=== PATIENT | female | born 1970 | race Caucasian/White ===

== ENCOUNTER 2018-06-02 21:47 | Inpatient (IN) | payer SELFPAY ==
[~2018-06-02] VITALS: Ht 165.1 cm; Wt 80.9 kg
[2018-06-02] MEDS ORDERED: ACETAMINOPHEN 500 MG TAB (TYLENOL) PO ONE (22:30)
[2018-06-02] MEDS ORDERED: cefTRIAXone FOR IV USE 1,000 MG in WATER (STERILE) FOR INJECTION 10 ML IV ONE (22:30)
[2018-06-02] MEDS ORDERED: fentaNYL INJECTION 100 MCG/2 ML AMP IVP ONE (22:30)
--- NOTE | 2018-06-02 22:44 | ED Fever ---
History of Present Illness General Stated Complaint: CHEST DISCOMFORT History of Present Illness Date Seen by Provider: Jun 02, 2018 Time Seen by Provider: 21:50 Initial Comments 48 yo f biba fall in shower she felt weak febrile to 102. pt is a poor historian overall she says her bg is usually 500 she has diabetes but she has no money so she doesnt see doctor or take meds. she does smoke cigarettes, she does use meth but not iv she says. she has been coughing a lot has body aches, urinating with some intermittent incontinence. also she landed on her right arm felt a pop in the shoulder severe sharp nonradiating pain also hit her head and her left abdomen when she fell she tells me. pt has llq abdo pain as well she has had h/a for two years ever since she bumped it on something but she didnt go to the doctor. Allergies and Home Medications Allergies Coded Allergies: No Known Drug Allergies (Unverified , 06/02/18) Home Medications Cefdinir 300 Mg Capsule, 300 MG PO twice a day Prescribed by: RUBA VILCHIS on 06/04/18 1100 Ibuprofen 200 Mg Tablet, 400 MG PO Q8H PRN for PAIN-MILD, (Reported) Insulin Aspart 300 Units/3 Ml Solution, 5 UNITS SQ AC Prescribed by: THUY WILD on 06/04/18 1134 Insulin Detemir 100 Unit/1 Ml Insuln.pen, 20 UNIT SQ HS Prescribed by: RUBA VILCHIS on 06/04/18 1058 Patient Home Medication List Home Medication List Reviewed: Yes Review of Systems Review of Systems Constitutional: chills, fever, malaise, weakness EENTM: nose congestion, throat pain Respiratory: cough, short of breath Cardiovascular: see HPI, chest pain Genitourinary: frequency, incontinence Musculoskeletal: see HPI Psychiatric/Neurological: Anxiety All Other Systems Reviewed Negative Unless Noted: Yes Past Onuyqgd-Jarsoz-Hudpep Hx Past Med/Social Hx: Reviewed Nursing Past Med/Soc Hx Patient Social History Recent Foreign Travel: No Contact w/Someone Who Travel: No Physical Exam Vital Signs - First Documented 06/02/18 22:02 Temp 102.3 Pulse 90 Resp 18 B/P (MAP) 136/ Pulse Ox 97 O2 Delivery Room Air Capillary Refill : Height: '" Weight: lbs. oz. kg; BMI Method: General Appearance: moderate distress Eyes: Bilateral Eye PERRL HEENT: PERRL/EOMI, normal ENT inspection Neck: non-tender, full range of motion, supple Respiratory: other (decreased breath sounds left lung base.) Cardiovascular: no edema, no murmur, tachycardia Gastrointestinal: other (ttp llq no rebound or guarding) Extremities: other (there is ttp noted right shoulder and humerus, old appearing deformity at ac joint (surgical incision there), no echymosis or acute crepitus felt. rom reduced due to pain) Neurologic/Psychiatric: other (pt is anxious crying tearful, intermittently cooperatie, moving all extremities, alert and resopnsive generally.) Skin: normal color, warm/dry, other (small actively draining furuncle on abdominal wall 2-3 cm) Focused Exam Lactate Level 06/02/18 22:38: Lactic Acid Level 1.03 Lactic Acid Level Laboratory Tests Test 06/02/18 22:38 Lactic Acid Level 1.03 MMOL/L (0.50-2.00) Progress/Results/Core Measures Suspected Sepsis SIRS Temperature: Pulse: Respiratory Rate: Laboratory Tests 06/02/18 22:25: White Blood Count 14.0H Blood Pressure / Mean: 06/02/18 22:38: Lactic Acid Level 1.03 Laboratory Tests 06/02/18 22:25: Creatinine 0.52L, INR Comment 1.0, Platelet Count 316, Total Bilirubin 0.3 Results/Orders Lab Results Laboratory Tests Test 06/02/18 22:25 06/02/18 22:38 06/03/18 02:03 06/03/18 02:12 Range/Units White Blood Count 14.0 H 4.3-11.0 10^3/uL Red Blood Count 5.08 4.35-5.85 10^6/uL Hemoglobin 15.2 11.5-16.0 G/DL Hematocrit 43 35-52 % Mean Corpuscular Volume 85 80-99 FL Mean Corpuscular Hemoglobin 30 25-34 PG Mean Corpuscular Hemoglobin Concent 35 32-36 G/DL Red Cell Distribution Width 12.9 10.0-14.5 % Platelet Count 316 130-400 10^3/uL Mean Platelet Volume 10.2 7.4-10.4 FL Neutrophils (%) (Auto) 77 H 42-75 % Lymphocytes (%) (Auto) 15 12-44 % Monocytes (%) (Auto) 7 0-12 % Eosinophils (%) (Auto) 0 0-10 % Basophils (%) (Auto) 0 0-10 % Neutrophils # (Auto) 10.8 H 1.8-7.8 X 10^3 Lymphocytes # (Auto) 2.2 1.0-4.0 X 10^3 Monocytes # (Auto) 0.9 0.0-1.0 X 10^3 Eosinophils # (Auto) 0.0 0.0-0.3 10^3/uL Basophils # (Auto) 0.0 0.0-0.1 10^3/uL Neutrophils % (Manual) 68 % Lymphocytes % (Manual) 12 % Monocytes % (Manual) 10 % Eosinophils % (Manual) 0 % Basophils % (Manual) 0 % Band Neutrophils 10 % Blood Morphology Comment NORMAL Prothrombin Time 13.2 12.2-14.7 SEC INR Comment 1.0 0.8-1.4 Activated Partial Thromboplast Time 29 24-35 SEC Sodium Level 129 L 135-145 MMOL/L Potassium Level 4.1 3.6-5.0 MMOL/L Chloride Level 92 L 98-107 MMOL/L Carbon Dioxide Level 20 L 21-32 MMOL/L Anion Gap 17 H 5-14 MMOL/L Blood Urea Nitrogen 8 7-18 MG/DL Creatinine 0.52 L 0.60-1.30 MG/DL Estimat Glomerular Filtration Rate > 60 BUN/Creatinine Ratio 15 Glucose Level 348 H 70-105 MG/DL Calcium Level 8.6 8.5-10.1 MG/DL Corrected Calcium 9.4 8.5-10.1 MG/DL Total Bilirubin 0.3 0.1-1.0 MG/DL Aspartate Amino Transf (AST/SGOT) 19 5-34 U/L Alanine Aminotransferase (ALT/SGPT) 19 0-55 U/L Alkaline Phosphatase 89 40-136 U/L Total Protein 7.4 6.4-8.2 GM/DL Albumin 3.0 L 3.2-4.5 GM/DL Lactic Acid Level 1.03 0.50-2.00 MMOL/L Urine Color YELLOW Urine Clarity CLEAR Urine pH 6.5 5-9 Urine Specific [place] <1.005 1.016-1.022 Urine Protein NEGATIVE NEGATIVE Urine Glucose (UA) 2+ H NEGATIVE Urine Ketones NEGATIVE NEGATIVE Urine Nitrite NEGATIVE NEGATIVE Urine Bilirubin NEGATIVE NEGATIVE Urine Urobilinogen 0.2 NORMAL MG/DL Urine Leukocyte Esterase 1+ H NEGATIVE Urine RBC (Auto) TRACE H NEGATIVE Urine RBC RARE /HPF Urine WBC 0-2 /HPF Urine Squamous Epithelial Cells 5-10 /HPF Urine Crystals NONE /LPF Urine Bacteria TRACE /HPF Urine Casts NONE /LPF Urine Mucus NEGATIVE /LPF Urine Yeast FEW H /HPF Urine Culture Indicated CULTURE PENDING Urine Test NEGATIVE NEGATIVE Glucometer 245 H 70-110 MG/DL Micro Results Microbiology 06/02/18 Blood Culture - Preliminary, Resulted Positive; See Report 06/02/18 Influenza Types A,B Antigen (MAHAMED) - Final, Complete 06/03/18 Urine Culture - Final, Complete See Report My Orders Orders - BASSAM FELDER MD Cbc With Automated Diff (06/02/18 22:21) Comprehensive Metabolic Panel (06/02/18 22:21) Blood Culture (06/02/18 22:21) Urinalysis (06/02/18 22:21) Urine Culture (06/02/18 22:21) Protime With Inr (06/02/18 22:21) Partial Thromboplastin Time (06/02/18 22:21) Chest 1 View Ap/Pa Only (06/02/18 22:21) Saline Lock/Iv-Start (06/02/18 22:21) Saline Lock/Iv-Start (06/02/18 22:21) Ekg Tracing (06/02/18 22:21) Vital Signs Adult Sepsis Patie Q15M (06/02/18 22:21) O2 (06/02/18 22:21) Remove Rings In Anticipation O (06/02/18 22:21) Lactic Acid Analyzer (06/02/18 22:21) Influenza A And B Antigens (06/02/18 22:21) Ns Iv 1000 Ml (Sodium Chloride 0.9%) (06/02/18 22:30) Acetaminophen Tablet (Tylenol Tablet) (06/02/18 22:30) Ceftriaxone For Iv Use (Rocephin For I (06/02/18 22:30) Fentanyl Injection (Sublimaze Injection (06/02/18 22:30) Humerus 2 View Right (06/02/18 22:21) Shoulder 2 View Right (06/02/18 22:21) Manual Differential (06/02/18 22:25) Hcg,Qualitative Urine (06/02/18 23:39) Ct Head Wo (06/02/18 23:39) Ct Abdomen/Pelvis Wo (06/02/18 23:39) Insulin (Regular) Human (Humulin R (Per (06/03/18 00:00) Doxycycline Hyclate Tablet (Vibramycin T (06/03/18 00:56) Accucheck Stat ONCE (06/03/18 01:44) Ondansetron Injection (Zofran Injectio (06/03/18 02:00) Ns Iv 1000 Ml (Sodium Chloride 0.9%) (06/03/18 02:38) Medications Given in ED Vital Signs/I&O 06/02/18 06/02/18 06/03/18 06/03/18 22:02 22:53 00:00 02:00 Temp 102.3 102.3 99.8 99.5 Pulse 90 87 92 Resp 18 18 20 B/P (MAP) 136/ 106/54 110/50 (70) Pulse Ox 97 96 92 O2 Delivery Room Air Room Air Room Air Capillary Refill : Progress Note : Progress Note cxr my read lll pna flu neg leukocytosis noted lactic normal my read extremity xrays negative. in summary 48 yo hx of meth use, uncontrolled diabetes p/w fever generalized weakness, cough fell in shower, trauma workup in the er ct head neg xray no fracture or dislocation seen ct a/p " cluster of small nodular opacities at the left lung base. possibly mild infiltrate." called justina 230 am for admission for pneumonia fever weakness trouble ambulating, no follow up. ECG Initial ECG Impression Date: Jun 02, 2018 Initial ECG Impression Time: 21:56 Comment sinus tach rate 114 no ischemic changes noted. nonsp changed in avl noted Departure Impression Primary Impression: Pneumonia Disposition: XFER SHT-TRM HOSP Condition: Stable Admissions Decision to Admit Reason: Admit from ER (General) Departure-Patient Inst. Referrals: NO,LOCAL PHYSICIAN (PCP) Primary Care Physician Scripts Insulin Aspart (Novolog Flexpen) 300 Units/3 Ml Solution 5 UNITS SQ AC, #5 EA Prov: RUBA VILCHIS MD 06/04/18 Cefdinir (Cefdinir) 300 Mg Capsule 300 MG PO twice a day, #14 CAP Prov: ODGERS,RUBA K MD 06/04/18 Insulin Detemir (Levemir Flextouch) 100 Unit/1 Ml Insuln.pen 20 UNIT SQ HS, #6 EA Prov: RUBA VILCHIS MD 06/04/18 BASSAM FELDER MD Jun 02, 2018 22:44
[2018-06-02 22:52] LABS: BASOPHILS % (AUTO) 0 % (0-10); EOSINOPHILS % (AUTO) 0 % (0-10); HEMATOCRIT 43 % (35-52); HEMOGLOBIN 15.2 G/DL (11.5-16.0); LYMPHOCYTES # (AUTO) 2.2 X 10^3 (1.0-4.0); LYMPHOCYTES % (AUTO) 15 % (12-44); MEAN CORPUSCULAR HEMOGLOBIN 30 PG (25-34); MEAN CORPUSCULAR HGB CONC 35 G/DL (32-36); MEAN CORPUSCULAR VOLUME 85 FL (80-99); MEAN PLATELET VOLUME 10.2 FL (7.4-10.4); MONOCYTES # (AUTO) 0.9 X 10^3 (0.0-1.0); MONOCYTES % (AUTO) 7 % (0-12); NEUTROPHILS # (AUTO) 10.8 X 10^3 (1.8-7.8); NEUTROPHILS % (AUTO) 77 % (42-75); PLATELET COUNT 316 10^3/uL (130-400); RED CELL DISTRIBUTION WIDTH 12.9 % (10.0-14.5)
[2018-06-02] MEDS: NS IV 1000 ML 1,000 ML IV SCH (22:53)
[2018-06-02 23:13] LABS: CHLORIDE 92 MMOL/L (98-107); POTASSIUM 4.1 MMOL/L (3.6-5.0); SODIUM 129 MMOL/L (135-145)
[2018-06-02 23:14] LABS: ALANINE AMINOTRANSFERASE 19 U/L (0-55); ALKALINE PHOSPHATASE 89 U/L (40-136); BILIRUBIN,TOTAL 0.3 MG/DL (0.1-1.0); BUN/CREATININE RATIO 15; CALCIUM 8.6 MG/DL (8.5-10.1); CARBON DIOXIDE 20 MMOL/L (21-32); CREATININE SERUM 0.52 MG/DL (0.60-1.30); GFR ESTIMATED > 60; GLUCOSE 348 MG/DL (70-105); TOTAL PROTEIN 7.4 GM/DL (6.4-8.2)
[2018-06-02 23:31] LABS: PROTHROMBIN TIME PATIENT 13.2 SEC (12.2-14.7)
[2018-06-02 23:48] LABS: BAND NEUTROPHILS 10 %; BASOPHILS % (MANUAL) 0 %; EOSINOPHILS % (MANUAL) 0 %; LYMPHOCYTES % (MANUAL) 12 %; MONOCYTES % (MANUAL) 10 %; NEUTROPHILS % (MANUAL) 68 %; RBC MORPH NORMAL
[2018-06-03] VITALS (8 sets, daily range): BP systolic 110–145; BP diastolic 50–88
[2018-06-03] MEDS ORDERED: inSUlin (REGULAR) HUMAN 1 UNIT/0.01 ML (CHARGE PER UNIT) IV SCH
[2018-06-03] MEDS: NS IV 1000 ML 1,000 ML IV SCH ×4 (00:55→16:23)
[2018-06-03] MEDS ORDERED: DOXYCYCLINE 100 MG (VIBRAMYCIN) TABLET PO STA (00:56)
[2018-06-03] MEDS ORDERED: ONDANSETRON 4 MG/2 ML (SDV) Z0FRAN IVP ONE (02:00)
[2018-06-03 02:17] LABS: CLARITY,URINE CLEAR; COLOR,URINE YELLOW; PH,URINE 6.5 (5-9); PROTEIN,URINE NEGATIVE (NEGATIVE)
[2018-06-03 02:18] LABS: BACTERIA,URINE TRACE /HPF; BILIRUBIN,URINE NEGATIVE (NEGATIVE); GLUCOSE, URINE (UA) 2+ (NEGATIVE); KETONES,URINE NEGATIVE (NEGATIVE); LEUKOCYTE ESTERASE ,URINE 1+ (NEGATIVE); NITRITE,URINE NEGATIVE (NEGATIVE); RBC,URINE RARE /HPF; UROBILINOGEN,URINE 0.2 MG/DL (NORMAL); WBC,URINE 0-2 /HPF; YEAST,URINE FEW /HPF
[2018-06-03] MEDS ORDERED: NS IV 1000 ML 1,000 ML ONE (02:38)
[2018-06-03] MEDS: inSUlin ASPART (NovoLOG) 1 UNIT/0.01 ML (CHARGE PER UNIT) SC SCH ×4 (06:40→20:35)
--- NOTE | 2018-06-03 06:46 | Diagnostic Imaging Report ---
CLINICAL INDICATION: Patient brought to ER by EMS. Patient states had hysterectomy and patient hit her head after she fell. EXAM: Axial CT scan of brain performed without IV contrast. COMPARISON: None. FINDINGS: There is no evidence of acute cerebral infarct, intracranial hemorrhage, or gross mass effect. The brain parenchymal volume appears appropriate for patient's age. There is normal hoskins-white matter distinction. There is no significant midline shift or herniation. There is no evidence of hydrocephalus. The basal cisterns are unremarkable. The skull, extracranial soft tissue, and orbits are unremarkable. There is mild mucosal thickening involving ethmoid sinus and both maxillary sinuses. There are frothy secretions within the nasopharynx. Temporal bones show no significant abnormality. IMPRESSION: 1: There is no evidence of acute intracranial process. 2: Paranasal sinus disease. I agree with [facility] report. Dictated by: Dictated on workstation # [id number]
--- NOTE | 2018-06-03 07:00 | NUR ---
MARCO AWILLA Myers admitted to room 413-1, with an admitting diagnosis of PNEUMONIA, on 06/03/18 from ED VIA WC, accompanied by EMS STAFF.WILLA STRICKLAND introduced to surroundings, call light, bed controls, phone, TV, temperature control, lights, meal times, smoking policy, visitor policy, side rail policy, bathrooms and showers. Patient Rights given to patient in the handbook. WILLA STRICKLAND verbalizes understanding that [facility] is not responsible for the loss or damage to any personal effects or valuables that are kept in the patients posession during their hospitalization. PT CARE PLAN AND DISCHARGE INSTRUCTIONS WERE DISCUSSED WITH PT WILLA STRICKLAND verbalizes understanding of Interdisciplinary Patient Education. Patient and/or family were informed about the Rapid Response Team and its purpose.
--- NOTE | 2018-06-03 07:13 | Diagnostic Imaging Report ---
INDICATION: Postoperative changes in the shoulder pain after falling in the shower. EXAMINATION: Right shoulder from 06/02/2018. Correlation made to previous chest x-ray dated 10/13/2008. FINDINGS: 3 views of the right shoulder demonstrate a right sided screw extending through the acromion towards the clavicle. The distal screw does not appear to extend through the clavicle with the clavicle superiorly dislocated and correlation to the acromion. However these findings were seen on previous chest x-ray. An osseous fragment inferior to this region appears well corticated. No acute fractures appreciated. Glenohumeral joint appears intact. IMPRESSION: 1. Postoperative findings in the right acromioclavicular joint region with dislocation at the joint space but likely chronic given previous findings discussed above. 2. Remaining osseous structures intact. Dictated by: Dictated on workstation # [id number]
--- NOTE | 2018-06-03 07:21 | Diagnostic Imaging Report ---
CLINICAL INDICATION: Patient with chest pain, cough, shortness of air. EXAM: Portable chest x-ray upright view. COMPARISONS: Chest x-ray dated 10/13/2008. FINDINGS: Lungs/pleura: There is interval development of airspace opacities in the left lung base and left inferior perihilar region which may represent atelectasis versus infiltrate. There is no pneumothorax. There is no pleural effusion. Mediastinum: Unremarkable. Pulmonary vasculature: Unremarkable. Heart: Unremarkable. Bones/extrathoracic soft tissue: Again seen screw within the right acromion with chronic separation of the right acromioclavicular joint. IMPRESSION: 1: Interval development of mild atelectasis versus infiltrate in the left lung base. 2: The remainder of this exam shows no significant interval change compared to the prior study of comparison. Dictated by: Dictated on workstation # [id number]
--- NOTE | 2018-06-03 07:25 | Diagnostic Imaging Report ---
Clinical indication: Patient brought to ER by EMS. Patient states has chest pain, cough, shortness breath. Patient fell in the shower. Exam: X-ray of the right shoulder, 2 views. Comparison: X-ray of the right shoulder dated 06/02/2018. Chest x-ray dated the 10/13/2008. Findings: Again seen screw overlying the acromion region. There appears to be superior elevation of the right clavicle in relation to the acromion. This is consistent with acromioclavicular joint separation which is stable compared to the prior chest x-ray dated 10/13/2008. Otherwise there is no acute fracture or dislocation. Impression: 1: There is no interval acute fracture or dislocation. 2: Again seen screw in the region of the acromion with chronic acromioclavicular joint separation. Dictated by: Dictated on workstation # [id number]
[2018-06-03] MEDS ORDERED: FLU QUADRIvalent (5+ YOA) 2018-2019 (AFLURIA) 0.5 ML IM ONE (07:45)
--- NOTE | 2018-06-03 08:44 | Diagnostic Imaging Report ---
INDICATION: Left lower quadrant pain. CT abdomen and pelvis obtained without IV contrast. There is no prior study for comparison. FINDINGS: Visualized portions of the lung bases show a small 5 mm nodule in the left lower lobe. There is no pleural fluid or free intraperitoneal air. The liver shows no focal lesions. Gallbladder appears unremarkable. The spleen shows a few calcified granuloma. The adrenals show no masses. Kidneys bilaterally appear unremarkable. There are a few scattered retroperitoneal nodes, largest of which measured about 1.9 x 1.1 cm. There is no sign of bowel obstruction or focal bowel wall thickening. There is a cystic lesion in the left adnexa measuring about 1.8 cm. The uterus appears surgically absent. IMPRESSION: Small 5 mm nodule left lung base, recommend clinical correlation and followup study in 6 months. There are some borderline size nodes in the retroperitoneum of uncertain significance, followup of this abnormality is recommended. There is a possible cyst in the left adnexa, consider sonographic followup as clinically warranted. Dictated by: Dictated on workstation # [id number]
[2018-06-03] MEDS ORDERED: MILK OF MAGNESIA 400 MG/5 ML 30 ML UDC PO PRN (08:45)
[2018-06-03] MEDS ORDERED: ANTACID SUSP 30 ML UDC (MYLANTA) PO PRN (08:45)
[2018-06-03] MEDS ORDERED: MELATONIN 3 MG TABLET PO PRN (08:45)
[2018-06-03] MEDS ORDERED: BENZONATATE 100 MG (TESSALON) CAPSULE PO PRN (08:45)
[2018-06-03] MEDS: ACETAMINOPHEN 325 MG TABLET PO PRN ×2 (08:52→16:26)
[2018-06-03] MEDS: ONDANSETRON 4 MG/2 ML (SDV) Z0FRAN IV PRN (08:59)
[2018-06-03 09:17] LABS: BASOPHILS % (AUTO) 0 % (0-10); EOSINOPHILS % (AUTO) 0 % (0-10); HEMATOCRIT 41 % (35-52); HEMOGLOBIN 14.3 G/DL (11.5-16.0); LYMPHOCYTES # (AUTO) 1.4 X 10^3 (1.0-4.0); LYMPHOCYTES % (AUTO) 10 % (12-44); MEAN CORPUSCULAR HEMOGLOBIN 30 PG (25-34); MEAN CORPUSCULAR HGB CONC 35 G/DL (32-36); MEAN CORPUSCULAR VOLUME 85 FL (80-99); MONOCYTES % (AUTO) 7 % (0-12); NEUTROPHILS # (AUTO) 11.2 X 10^3 (1.8-7.8); NEUTROPHILS % (AUTO) 83 % (42-75); PLATELET COUNT 275 10^3/uL (130-400); RED CELL DISTRIBUTION WIDTH 13.5 % (10.0-14.5); WHITE BLOOD COUNT 13.6 10^3/uL (4.3-11.0)
[2018-06-03 09:35] LABS: BUN/CREATININE RATIO 7; CARBON DIOXIDE 24 MMOL/L (21-32); CHLORIDE 101 MMOL/L (98-107); GFR ESTIMATED > 60; GLUCOSE 228 MG/DL (70-105); POTASSIUM 3.5 MMOL/L (3.6-5.0); SODIUM 132 MMOL/L (135-145)
--- NOTE | 2018-06-03 10:13 | History & Physical-Hospitalist ---
History of Present Illness HPI/Chief Complaint Pt is a 48yoCF with a PMH of IDDMII and HTN who presented to the ER due to fever and not feeling well. She states her symptoms started two days ago with fever and she fell in the shower. She also has been coughing and feeling short of breath over the past few days. She was found to have a LLL PNA on CXR in the ER with leukocytosis and fever so was admitted for sepsis. This morning she states she is feeling poorly still with some nausea and persistent coughing. Her fever was elevated further at 103 this AM. She is requesting a fan and more Sprite. She also reports she is an insulin dependent diabetic but has been off her insulin and just using what she can from her aunt as she does not have insurance. She is also an active meth user though trying to quit and has quit injecting. Her last use was 3 days ago. Source: patient Date Seen 06/03/18 Time Seen by a Provider: 10:13 Attending Physician Harshil Miller MD PCP No,Local Physician Referring Physician Date of Admission Jun 03, 2018 at 03:14 Home Medications & Allergies Home Medications Reviewed patient Home Medication Reconciliation performed by pharmacy medication reconciliations career guidance technician and/or nursing. Patients Allergies have been reviewed. Allergies Allergies Coded Allergies No Known Drug Allergies (Unverified06/02/18) Past Pnhbulk-Ukiuqr-Jhmncs Hx Past Med/Social Hx: Reviewed Nursing Past Med/Soc Hx Patient Social History Alcohol Use: Denies Use Recreational Drug Use: Yes Drug of Choice: Meth, Marijuana Smoking Status: Current Everyday Smoker Cigaretts per day: 10 Type Used: Cigarettes 2nd Hand Smoke Exposure: No Recent Foreign Travel: No Contact w/other who traveled: No Recent Hopitalizations: No Recent Infectious Disease Expo: No Seasonal Allergies Seasonal Allergies: No Past Medical History Surgeries: Hysterectomy, Orthopedic Cardiac: Hypertension : No Hysterectomy Endocrine: Diabetes, Insulin dep Are Your Blood Sugars Over 250: Yes History of Blood Disorders: No Family History Reviewed and Corrections made Heart Disease, Cancer, Diabetes, Hypertension Review of Systems Constitutional: chills, fever, weakness EENTM: no symptoms reported Respiratory: cough, phlegm, short of breath Cardiovascular: chest pain; No Hx of Intervention, No palpitations Gastrointestinal: No abdominal pain, No constipation, No diarrhea; nausea; No vomiting Genitourinary: no symptoms reported Musculoskeletal: muscle pain Skin: no symptoms reported Psychiatric/Neurological: No Symptoms Reported Physical Exam Physical Exam Vital Signs Vital Signs - First Documented 06/02/18 22:02 Temp 102.3 Pulse 90 Resp 18 B/P (MAP) 136/ Pulse Ox 97 O2 Delivery Room Air Capillary Refill : Less Than 3 Seconds Height, Weight, BMI Height: 5'5.00" Weight: 178lbs. 6.0oz. 80.221213es; 29.8 BMI Method:Actual General Appearance: No Apparent Distress, WD/WN HEENT: PERRL/EOMI, Moist Mucous Membranes; No Scleral Icterus (L), No Scleral Icterus (R) Neck: Normal Inspection; No Lymphadenopathy (L), No Lymphadenopathy (R), No Thyromegaly Respiratory: No Accessory Muscle Use, No Respiratory Distress, Decreased Breath Sounds; No Wheezing Cardiovascular: Regular Rate, Rhythm, No Murmur Gastrointestinal: Normal Bowel Sounds, Non Tender, Soft Extremity: No Calf Tenderness, No Pedal Edema Neurologic/Psychiatric: Alert, Oriented x3 Skin: Normal Color, Warm/Dry, Tattoos/Piercings Results Results/Procedures Labs Laboratory Tests 06/02/18 22:25 06/03/18 08:55 Patient resulted labs reviewed. Imaging: Reviewed Imaging Report Assessment/Plan Admission Diagnosis Sepsis Admission Status: Inpatient Order (span 2 midnights) Reason for Inpatient Admission: needs IV abx, await cultures Diagnosis/Problems Diagnosis/Problems (1) Sepsis Status: Acute Assessment & Plan: Leukocytosis and febrile on arrival with PNA Met sepsis criteria Lactic normal Continue Rocephin and Azithro for CAP coverage AWait cultures Qualifiers: Sepsis type: sepsis due to unspecified organism Qualified Codes: A41.9 - Sepsis, unspecified organism (2) Pneumonia Status: Acute Assessment & Plan: Abx as above Await cultures Qualifiers: Pneumonia type: due to unspecified organism Laterality: left Lung location: lower lobe of lung Qualified Codes: J18.1 - Lobar pneumonia, unspecified organism (3) Insulin dependent diabetes mellitus Status: Chronic Assessment & Plan: Noncompliant with medications due to financial issues Discussed with SW and pharmacy Plan to access 340B for meds at DC (4) Essential (primary) hypertension Assessment & Plan: BP well controlled currently Trend (5) Substance abuse Assessment & Plan: Active meth use Recommended cessation Clinical Quality Measures AMI/AHF: ASA po Prior to arrival: Yes (324mg ASA given by EMS ) DVT/VTE Risk/Contraindication: Risk Factor Score Per Nursin RFS Level Per Nursing on Admit: 3=High VINI SPANGLER MD Jun 03, 2018 10:13
[2018-06-03] MEDS ORDERED: AZITHROMYCIN 250 MG TAB (ZITHROMAX) PO NR (10:15)
[2018-06-03] MEDS ORDERED: KCL 20 MEQ TAB (K-DUR) PO NR (11:00)
[2018-06-03] MEDS ORDERED: inSUlin DETERMIR 1 UNIT/0.01 ML (LEVEMIR) CHARGE PER UNIT SQ SCH (21:00)
[2018-06-03] MEDS ORDERED: cefTRIAXone FOR IV USE 1,000 MG in WATER (STERILE) FOR INJECTION 10 ML IV SCH (22:00)
--- NOTE | 2018-06-04 00:31 | NUR ---
PT COMPLAINED OF A H/A RATED AT 7/10. STATED THAT TYLENOL DOESN'T WORK AND REQUESTED IBUPROFEN. THIS RN CALLED DR VILCHIS AND RECEIVED TELEPHONE ORDER FOR IBUPROFEN 600 MG PO TID PRN VIA TELEPHONE ORDER.
[2018-06-04 00:35] VITALS: BP 152/65
[2018-06-04] MEDS: IBUPROFEN 600 MG (MOTRIN) TAB PO PRN ×2 (00:37→10:19)
[2018-06-04] MEDS: NS IV 1000 ML 1,000 ML IV SCH (02:46)
[2018-06-04 04:41] VITALS: BP 120/80
[2018-06-04] MEDS: inSUlin ASPART (NovoLOG) 1 UNIT/0.01 ML (CHARGE PER UNIT) SC SCH ×2 (05:53→10:31)
[2018-06-04] MEDS: ONDANSETRON 4 MG/2 ML (SDV) Z0FRAN IV PRN (05:58)
--- NOTE | 2018-06-04 06:15 | NUR ---
THIS RN TRIED TO DRAW BLOOD FROM [facility], WOULDN'T DRAW. CALLED LAB AND ASKED THEM TO DRAW. LAB ENTERED PTS ROOM AND PT ENDED UP REFUSING TO LET THEM DRAW BLOOD.
[2018-06-04 08:00] VITALS: BP 133/92
[2018-06-04] MEDS ORDERED: AZITHROMYCIN 250 MG TAB (ZITHROMAX) PO SCH (09:00)
[2018-06-04] MEDS ORDERED: INSU100V16 SQ (09:19)
[2018-06-04] MEDS ORDERED: IBUP-30 PO (09:19)
--- NOTE | 2018-06-04 09:19 | NUR ---
SPOKE WITH THE PATIENT ABOUT HER MEDICATIONS. SHE STATES SHE DOES NOT TAKE ANYTHING REGULARLY. SHE IS SUPPOSED TO TAKE INSULIN BUT DOES NOT HAVE INSURANCE SO IS UNABLE TO AFFORD IT REGULARLY. SHE STATES SHE USES NOVOLOG INSULIN WHEN SHE USES IT, SHE DOES NOT HAVE ANY WAY TO TEST HER BLOOD SUGAR BUT SHE USUALLY USES 9 UNITS WHEN SHE USES IT. SHE ALSO STATES SHE TAKES ADVIL OTC PRN.
--- NOTE | 2018-06-04 10:49 | Progress Note-Hospitalist ---
Progress Note Progress Notes/Assess & Plan Date Seen 06/04/18 Time Seen by Provider: 10:41 Assessment & Plan The patient is a 48-year-old white female who admits to being a methamphetamine abuser. She was transferred down from the [facility] emergency room after she presented with fever and granulocytosis. Workup was consistent with an early left lower lobe pneumonia. Her last fever was recorded at 0852 on 06/03. She reports that she is not feeling well but much better at this point in time. She is eager to go home. The microbiology department reported that she is growing a gram-negative jacqueline on the one blood culture taken. She had empirically been started on Rocephin. She states that she has no current doctor. She has been taking only a bit of Levemir as she has been out of strips for her glucometer, an easy max. Physical exam: She is red-faced and appears to have been crying. Lungs show distant breath sounds but are clear. CV is regular without tachycardia. Impression: Pneumonia/septicemia. 2.diabetes mellitus type II with poor treatment plan. 3.methamphetamine abuse. Plan: Discharge. See discharge sequence for medications and routines. Focused Exam Lactate Level 06/02/18 22:38: Lactic Acid Level 1.03 RUBA VILCHIS MD Jun 04, 2018 10:49
[2018-06-04] MEDS ORDERED: INSU100I14 SQ ×2 (10:57→11:34)
[2018-06-04] MEDS ORDERED: INSU100I29 SQ (10:58)
[2018-06-04] MEDS ORDERED: CEFD300C3 PO (11:00)
--- NOTE | 2018-06-04 11:03 | Discharge Inst-Simple/Standard ---
Discharge Inst-Standard Discharge Medications New, Converted or Re-Newed RX: RX on Chart Patient Instructions/Follow Up Plan of Care/Instructions/FU: Arrange for follow-up care and diabetic management at [facility]. Cefdinir twice daily for the next 6 days. Began with your first dose in the morning, 06/05 Your initial prescriptions have been printed and should go to [facility] as we have a low ramirez deal with it. Activity as Tolerated: Yes Discharge Diet: ADA Diet Return to The Hospital For: Recurrence of symptoms Planned Outpatient Orders/Ref. Pneu Vac Indicated: Yes RUBA VILCHIS MD Jun 04, 2018 11:03
--- NOTE | 2018-06-04 12:21 | NUR ---
CM DISCHARGE PLANNING: Patient is dismissing to home today self care. A referral was sent for prescription assistance for insulin. Criss PharmD facilitated prescriptions to [facility] for needed 340B assistance. PALS voucher completed et faxed to [facility]. Diabetic insulin supplies obtained by [facility] et given to the patient by the primary care nurse Bonnie. Patient reports that she continues to be unsure if anyone will be able to waste picker her needed prescription from [facility] but that she is not allowed into [facility] from a prior incident. Encouraged her on the importance of this medication for her overall health et that this medication would also be no cost to her. She voiced understanding. No further needs noted at this time.
== END 2018-06-04 12:30 | disposition home or self-care (01) | DRG 871 ==
LOC: EDUNIT# 21:47 → ER FS 21:49 → 4TH 06-03 03:14
PROVIDERS: ADMIT Internal Medicine; ATTEND Internal Medicine
DX: A41.9 Sepsis, unspecified organism (principal); J18.1 Lobar pneumonia, unspecified organism; E11.65 Type 2 diabetes mellitus with hyperglycemia; F17.210 Nicotine dependence, cigarettes, uncomplicated; I10 Essential (primary) hypertension; F15.10 Other stimulant abuse, uncomplicated; M25.511 Pain in right shoulder; R10.32 Left lower quadrant pain; R51 Headache; Z91.120 Patient's intentional underdosing of medication regimen due to financial hardship; Z79.4 Long term (current) use of insulin; W18.2XXA Fall in (into) shower or empty bathtub, initial encounter; Y93.E1 Activity, personal bathing and showering
CPT/HCPCS: 36415; 70450; 71045; 73030; 73060; 74176; 80048; 80053; 81000; 82962; 83036; 83605; 84703; 85007; 85025; 85027; 85610; 85730; 87040; 87077; 87088; 87804; 93005